=== PATIENT | female | born 1965 | race Caucasian/White ===

== ENCOUNTER → 2017-11-24 17:00 | Outpatient (CLI) | payer OTHER, SELFPAY ==
[2017-10-29 15:23] VITALS: BP 108/62; BMI 29.7
--- NOTE | 2017-11-24 17:15 | HPBI_ITS ---
MAMMOGRAPHY - BILATERAL SCREENING REASON FOR EXAM: Female, 52 years old. Routine annual screening examination. PERTINENT HISTORY: Mother with breast cancer. TECHNIQUE: Digital bilateral breast ajay (3D mammographic acquisition) in the CC and MLO projections. 2-D mediolateral oblique (MLO) and craniocaudad (CC) views of both breasts were obtained. CAD: Full Field Digital Mammography with Computer Added Detection was performed. COMPARISON: Comparison is made with prior study dated August 22, 2016 and June 14, 2015. FINDINGS: Breast Composition: There are scattered areas of fibroglandular density. There are no dominant masses or suspicious calcifications. There is a 6.7 mm x 6.7 mm well-defined nodular density with a central notch in the deep retroareolar region of the right breast. This most likely represents a small lymph node. Correlation with ultrasound is recommended. No other significant abnormalities are identified. There has been no significant change since the prior study. HPBI/SCREENING MAMM (CAD), BILAT IMPRESSION: 6.7 mm x 6.7 mm well-defined nodule in the retroareolar region of the right breast as described. Correlation with ultrasound is recommended. ASSESSMENT CATEGORY: BIRADS Category 0: Incomplete. Need additional imaging evaluation. A letter regarding these results will be sent to the patient by the facility within 30 days. Approximately 10% of breast cancers are not detected by mammography. A normal mammogram should not delay biopsy of a clinically suspicious abnormality. [id number] Electronically Signed: Garcia Montgomery MD at 8:49 EST Tel [phone], Service support ,
== END ==
PROVIDERS: Visit Provider Obstetrics & Gynecology
DX: Z12.31 Encounter for screening mammogram for malignant neoplasm of breast (principal)
CPT/HCPCS: 77063; 77067

== ENCOUNTER → 2017-11-30 15:28 | Outpatient (CLI) | payer OTHER, SELFPAY ==
--- NOTE | 2017-11-30 15:30 | US_ITS ---
STUDY: ULTRASOUND BREAST - RIGHT REASON FOR EXAM: Female, 52 years old. Abnormal screening mammogram. TECHNIQUE: Axial and longitudinal images of the RIGHT breast were performed with a high resolution ultrasound transducer. COMPARISON: Comparison is made with prior mammogram dated November 24, 2017. FINDINGS: RIGHT Breast: There is a 6 mm x 5 mm x 3 mm hypoechoic nodule with central area of increased echotexture suggestive of a small lymph node. US/Breast Limited Unilateral IMPRESSION: Findings suggestive of a small lymph node. This corresponds to the mammographic findings. ASSESSMENT CATEGORY: BIRADS Category 2: Benign. A letter regarding these results will be sent to the patient by the facility within 30 days. Electronically Signed: Garcia Montgomery MD at 16:01 EST Tel [phone], Service support ,
== END ==
PROVIDERS: Visit Provider Obstetrics & Gynecology
DX: N63.0 Unspecified lump in unspecified breast (principal)
CPT/HCPCS: 76642

== ENCOUNTER → 2018-05-06 11:38 | Outpatient (CLI) | payer OTHER, SELFPAY ==
[2018-05-06 12:42] LABS: AST(SGOT) 22 U/L (15-37); Alanine Aminotransfer ALT/SGPT 33 U/L (13-56); Alkaline Phosphatase 56 U/L (45-117); Bilirubin, Direct 0.11 mg/dL (0.00-0.30); Cholesterol 140 mg/dL (200); Globulin 3.2 g/dL (2.2-4.2); High Density Lipoprotein 60 mg/dL; Protein, Total 7.2 g/dL (6.4-8.2); Triglycerides 54 mg/dL; Very Low Density Lipoprotein 11 mg/dL (5-40)
== END ==
PROVIDERS: Visit Provider Nurse Practitioner Family
DX: E78.5 Hyperlipidemia, unspecified (principal)
CPT/HCPCS: 36415; 80061; 80076

== ENCOUNTER → 2018-07-08 13:27 | Outpatient (CLI) | payer OTHER, SELFPAY ==
[2018-07-14 08:54] LABS: HPV Reflexed? NOT INDICATED
== END ==
PROVIDERS: Visit Provider Obstetrics & Gynecology
DX: Z12.4 Encounter for screening for malignant neoplasm of cervix (principal)
CPT/HCPCS: 88175; G0145

== ENCOUNTER → 2019-01-22 10:46 | Outpatient (CLI) | payer OTHER, SELFPAY ==
--- NOTE | 2019-01-22 10:54 | BI_ITS ---
MAMMOGRAPHY - BILATERAL SCREENING REASON FOR EXAM: Female, 53 years old. Routine annual screening examination. PERTINENT HISTORY: Mother with breast cancer. TECHNIQUE: Digital bilateral breast ajay (3D mammographic acquisition) in the CC and MLO projections. 2-D mediolateral oblique (MLO) and craniocaudad (CC) views of both breasts were obtained. CAD: Full Field Digital Mammography with Computer Added Detection was performed. COMPARISON: Comparison is made with prior study dated November 24, 2017 and August 22, 2016. FINDINGS: Breast Composition: There are scattered areas of fibroglandular density. There are no dominant masses or suspicious calcifications. Stable 6.7 mm x 6.7 mm well-defined nodule in the central deep portion of the left breast. No other significant abnormalities are identified. There has been no significant change since the prior study. BI/SCREENING MAMM (CAD), BILAT IMPRESSION: Stable bilateral screening mammogram. Yearly follow-up mammogram recommended. (A) ASSESSMENT CATEGORY: BIRADS Category 2: Benign. A letter regarding these results will be sent to the patient by the facility within 30 days. Approximately 10% of breast cancers are not detected by mammography. A normal mammogram should not delay biopsy of a clinically suspicious abnormality. [id number] Electronically Signed: Garcia Montgomery, at 9:42 EDT , Service support ,
== END ==
PROVIDERS: Referring Provider Obstetrics & Gynecology; Visit Provider Obstetrics & Gynecology
DX: Z12.31 Encounter for screening mammogram for malignant neoplasm of breast (principal)
CPT/HCPCS: 77063; 77067

== ENCOUNTER → 2019-05-20 11:43 | Outpatient (CLI) | payer OTHER, SELFPAY ==
[2019-05-20 12:34] LABS: Absolute Lymphocyte Count 1.77 X10^3/uL (0.83-4.51); Absolute Neutrophil Count 2.4 X10^3/uL (2.0-7.7); Basophil# 0.05 X10^3/uL; Eosinophil# 0.27 X10^3/uL; Eosinophils% 5.4 % (0-5); Hematocrit 38.5 % (37-47); Hemoglobin 12.7 g/dL (12.0-15.0); Lymphocyte # 1.77 X10^3/ul (4.0); Lymphocyte % 35.4 % (19-41); Mean Corpuscular Hgb 31.3 pg (27.0-32.0); Mean Corpuscular Volume 94.8 fL (81-99); Mean Platelet Vol. 10.2 fl (6.2-12.0); Monocyte# 0.52 X10^3/uL; Monocyte% 10.4 % (0-10); NRBC Flagged by Analyzer 0 % (0-5); Neutrophil # 2.38 X10^3/uL (2.7-7.7); Neutrophil % 47.6 % (47-70); Platelet Count 366 K/mm3 (150-450); RBC Distribution Width CV 13.1 % (11.6-14.6); RBC Distribution Width SD 45.8 fl (35.1-43.9); Red Blood Count 4.06 M/mm3 (4.2-5.4)
[2019-05-20 12:42] LABS: Color, Urine Yellow (Yellow); Glucose, Dipstick Normal (Normal); Ketone-Dipstick Negative (Negative); Leukocyte Esterase-Dipstick 100 /ul (Negative); Nitrite-Dipstick Negative (Negative); Occult Blood-Urine Negative /ul (Negative); Protein-Dipstick Negative (Negative); Specific Gravity, Urine 1.015 (1.002-1.030); Urine Bilirubin Dipstick Negative (Negative); Urine Clarity Sl. Cloudy (Clear); Urine Urobilinogen Normal (Normal)
[2019-05-20 13:12] LABS: ALB/GLOB Ratio 1.3 RATIO (0.9-2.4); AST(SGOT) 27 U/L (15-37); Alanine Aminotransfer ALT/SGPT 45 U/L (13-56); Albumin, Serum 4.2 g/dL (3.2-5.0); Alkaline Phosphatase 55 U/L (45-117); Anion Gap 7 (5-15); BUN 23 mg/dL (7-18); BUN/Creat Ratio 22.8 RATIO (10-20); Calcium,Total 9.1 mg/dL (8.5-10.1); Chloride 110 mmol/L (98-107); Cholesterol 142 mg/dL (200); Creatinine, Serum 1.01 mg/dL (0.55-1.02); EST Glomerular Filtration Rate 61 mL/min (>60); Est Glom Filt Rate - Afr Amer 73 mL/min (>60); Globulin 3.3 g/dL (2.2-4.2); Glucose 84 mg/dL (74-106); High Density Lipoprotein 68 mg/dL; Potassium 3.8 mmol/L (3.5-5.1); Protein, Total 7.5 g/dL (6.4-8.2); Sodium Level 142 mmol/L (136-145); Triglycerides 53 mg/dL; Very Low Density Lipoprotein 11 mg/dL (5-40)
== END ==
PROVIDERS: Referring Provider Family Medicine; Visit Provider Family Medicine
DX: Z00.00 Encounter for general adult medical examination without abnormal findings (principal); E78.1 Pure hyperglyceridemia
CPT/HCPCS: 36415; 80053; 80061; 81002; 85025

== ENCOUNTER → 2019-09-08 16:56 | Outpatient (CLI) | payer OTHER, SELFPAY ==
[2018-05-17 10:01] VITALS: BMI 29.7
[2019-09-20 12:45] LABS: HPV APTIMA, High Risk Negative (Negative); HPV Reflexed? YES, CHARGE PATIENT
== END ==
PROVIDERS: Visit Provider Obstetrics & Gynecology
DX: Z12.4 Encounter for screening for malignant neoplasm of cervix (principal)
CPT/HCPCS: 87624; 88175; G0145

== ENCOUNTER → 2019-10-06 13:24 | Outpatient (CLI) | payer OTHER, SELFPAY ==
[2018-05-17 10:01] VITALS: BMI 29.7
--- NOTE | 2019-10-06 | IMM_PTH ---
PATIENT: TAE VILLELA LOC: [facility] U#:[id number] AGE/SX: 59/F ROOM: RE10/06/[address]: Dr. Hari Kathleen MD : 1965 BED: DIS: SPEC #: [id number] RECD: 10/07/19 12:08 STATUS: BIB REAdeola #: [id number] PRISCILLA: 10/06/19 00:[address]: Hari Kathleen DEPT: IMMUNOHISTOCHEMISTRY RECD BY: Soledad Kolb ENTERED: 10/07/19 12:08 SP TYPE: IMMUNO OTHR DR: Damian Milton Tissues: A - Uterine cervix, NOS Procedures: p16 (initial) KI-67 (add) PHYSICIAN & INSTITUTION [facility] [id number] SPECIMEN INFORMATION: Tissue Source: A - Four quadrant of cervix Clinical Info: ASCUS, rule out HGSIL Specimen Number: [id number] CPT code: 60734, 88742 METHODOLOGY: Deparaffinized sections of prefer/formalin-fixed tissue or PAP/DQ stained slides are incubated with monoclonal/polyclonal antibodies/oligonucleotide probes. Localization is made via biotin free immunoperoxidase method. Appropriate controls are performed and reacted as expected. Results on target cell population are indicated in the following table: RESULTS: ANTIBODY / CLONE RESULT Block A P16 (E6H4) positive, focal and patchy Ki-67 (30-9) negative These tests were developed and their performance characteristics determined by [facility]. They may not have been cleared or approved by the U.S. Food and Drug Administration. The FDA has determined that such clearance or approval is not necessary. The above immunohistochemical/dualISH markers are ordered and reviewed by the Pathologist. 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 SJ:nan 10/07/19
--- NOTE | 2019-10-06 | CER_PTH ---
PATIENT: TAE VILLELA LOC: [facility] U#:[id number] AGE/SX: 59/F ROOM: RE10/06/[address]: Dr. Hari Kathleen MD : 1965 BED: DIS: SPEC #: [id number] RECD: 10/06/19 14:07 STATUS: BIB [facility] #: [id number] PRISCILLA: 10/06/19 00:[address]: Hari Kathleen DEPT: SURGICAL PATHOLOGY RECD BY: Jay Coats ENTERED: 10/07/19 09:12 SP TYPE: CERV OTHR DR: Damian Milton Tissues: A - Uterine cervix, NOS B - Endocervical Procedures: Surgery Specimen Level IV HEADER OPERATION: Colposcopy PRE-OP DIAGNOSIS: ASCUS, cannot rule out HGSIL TISSUE SUBMITTED: A - Four quadrant of cervix, B - ECC MICROSCOPIC DIAGNOSIS A. 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 Mild chronic inflammation. See comment. B. ECC: Scant fragments of benign endocervical epithelium, blood and mucous, negative for dysplasia. JUDIE:nan 10/07/19 COMMENT A. Immunohistochemistry ([id number]) for surrogate HPV marker (p16) supports the above diagnosis. MICROSCOPIC DESCRIPTION Slides are reviewed. GROSS DESCRIPTION A - Received in fixative is one container labeled with the patient's name and designated four quadrant. The specimen consists of multiple irregular fragments of light mohan soft tissue that in aggregate measure 1 x 1 x 0.2 cm. The specimen is totally submitted in one cassette. B - Received in fixative is one container labeled with the patient's name and designated ECC. The specimen consists of multiple fragments of hemorrhagic soft tissue that in aggregate measure 1.5 x 0.5 x 0.1 cm. The specimen is totally submitted in one cassette. / JUDIE:nan 10/06/19 TC:5 CPT: 04902 x2
== END ==
PROVIDERS: Referring Provider Obstetrics & Gynecology; Visit Provider Obstetrics & Gynecology
DX: R87.610 Atypical squamous cells of undetermined significance on cytologic smear of cervix (ASC-US) (principal)
CPT/HCPCS: 88305; 88341; 88342

== ENCOUNTER 2019-11-07 08:43 | Day surgery (SDC) | payer OTHER, SELFPAY ==
[2019-11-02 16:59] LABS: Hematocrit 37.1 % (37-47); Hemoglobin 11.9 g/dL (12.0-15.0); Mean Corp Hgb Conc 32.1 g/dL (32-36); Mean Corpuscular Hgb 30.2 pg (27.0-32.0); Mean Corpuscular Volume 94.2 fL (81-99); Mean Platelet Vol. 10.2 fl (6.2-12.0); Platelet Count 352 K/mm3 (150-450); RBC Distribution Width CV 12.9 % (11.6-14.6); RBC Distribution Width SD 44.6 fl (35.1-43.9); Red Blood Count 3.94 M/mm3 (4.2-5.4); White Blood Count 5.7 K/mm3 (4.4-11.0)
[2019-11-02 17:06] LABS: International Normalized Ratio 1.1; Prothrombin Time (Protime)PT. 13.5 SECONDS (11.7-14.9)
[2019-11-02 17:07] LABS: Partial Thromboplast Time 33.9 Seconds (24.1-36.2)
--- NOTE | 2019-11-05 13:59 | PCM.HP.BLA ---
History and Physical Date of Admission: 11/07/19 Surgical History and Physical Dayami Hackett, a 54 year old female 3 0 0 0 3, presents for LEEP on October at 12:30. -- ASCUS PAP cannot R/O HSIL; colposcopy discordant --Recent pap screening with ASCUS cannot r/o HGSIL. 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 Mild chronic inflammation ECC: Scant fragments of benign endocervical epithelium, blood and mucous, negative for dysplasia. MEDICATIONS HISTORY: Current medications prescribed by our practice are: 1. Detrol LA 2 mg capsule,extended release, One pill by mouth once a day Patient is also takin. Calcium 500 + D 500 mg(1,250mg) -400 unit tablet, One pill by mouth twice a day 2. fenofibrate micronized 130 mg capsule, One pill by mouth once a day 3. Multiple Vitamin, Womens tablet, 1 PO QD 4. Unisom (doxylamine) 25 mg tablet ALLERGIES: Sulfonamides, Rash, Doxycycline, Stomach upset, Augmentin, Diarrhea and vomiting, Augmentin, Vomiting, Doxycycline, Stomach ache, Sulfa (Sulfonamide Antibiotics) and Hives and/or rash Infections - Chicken pox Illnesses - seasonal allergies Accidents - no injuries of consequence Hospitalizations - Childbirth and see surgery Review of Systems: GENERAL - Denies fever, or chills SKIN - Denies skin changes EYES - Denies visual changes EARS - Denies difficulty hearing NOSE - Denies nasal congestion or bleeding MOUTH - Denies sore throat or difficulty swallowing NECK - Denies pain or swelling RESPIRATORY - Denies shortness of breath or wheezing CARDIOVASCULAR - Denies palpitations or chest pain GASTROINTESTINAL - Denies nausea, vomiting, diarrhea, constipation GENITOURINARY - Denies dysuria, frequency of urination, incontinence of urine MUSCULOSKELETAL - Denies joint or muscle pain NEUROLOGICAL - Denies localized numbness or weakness PSYCHIATRIC - Denies depression or anxiety ENDOCRINE - Denies heat or cold intolerance, weight loss or gain HEMATO-IMMUNOLOGIC - Denies excesive bleeding with cuts SOCIAL HISTORY: Alcohol Use - socially Smoking - denies use Diet - no special diet Lifestyle - moderate stress lifestyle and Exercise - regular Seat Belt Use - always [employer]er - [employer] 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 Father: Prostate Cancer. MENSTRUAL HISTORY: LMP Known?- DefiniteAmount/Duration - 4 days, Regularity - Irregular, Frequency - variable days, LMP - 10/02/17, Age Onset Menarche - 12 PAST PREGNANCIES: Total Pregnancies - 3; Full Term Pregnancies - 3; Premature - 0; Abortions, Induced - 0; Abortions, Spontaneous - 0; Ectopics - 0; Multiple Births - 0; Living Children - 3 SURGICAL HISTORY: 1. , 1989 2. removal of vocal nodules 1994 PHYSICAL EXAM BP- 110/76 Sitting, Right arm, regular cuff Weight- 171.25357 lbs Height- 63.5 inch BMI:29.88 CONSTITUTIONAL - NAD, well nourished, and well developed SKIN - No rash, lesions, or ulcers HEENT - Normocephalic, PERRLA, EOMI NECK - No nodes, no nuchal rigidity and thyroid normal size and texture LYMPH NODES - Palpation of lymph nodes in neck and groins within normal limits LUNGS - CTA x2 without wheezes, crackles or rales CARDIAC - Regular rate and rhythm without rubs, murmurs, or gallops BREAST - No dominant masses, no tenderness, no axillary adenopathy, no nipple discharge, no skin changes ABDOMEN - Without hepatosplenomegaly, distention, masses, rebound, or guarding; normal bowel sounds; no hernias EXTREMITIES - No edema or calf tenderness NEUROLOGICAL - Cranial nerves II-XII grossly intact PSYCHIATRIC - A and O to time, place, person, mood and affect External Genitial Vagina - non-tender without lesions Urethra/Urethral Meatus - non-tender Bladder - non-tender Vagina - vaginal garcia are pink and moist without loss of rugae and no evidence of atropy Cervix - without cervical motion tenderness and has normal size and features without evident lesions Uterus - 5-6 cm in size, mobile and nontender Adnexa - clear without massess or tenderness ASSESSMENT/PLAN: PAP with ASCUS cannot r/o HSIL. Discordant with colposcopy. Plan LEEP. Discussed RBAs and all questions answsered.
[2019-11-07] VITALS (7 sets, daily range): BP systolic 100–120; BP diastolic 58–85; PULSE 74–95; RESP 16; TEMP 36.2–36.7; O2SAT 95–100; BMI 30.2
--- NOTE | 2019-11-07 | CER_PTH ---
PATIENT: TAE VILLELA LOC: [facility] [place] U#:[id number] AGE/SX: 54/F ROOM: RE11/07/[address]: Dr. Hari Kathleen MD : 1965 BED: DIS: 11/07/2019 SPEC #: [id number] RECD: 11/07/19 13:28 STATUS: BIB [place] #: [id number] PRISCILLA: 11/07/19 00:[address]: Hari Kathleen DEPT: SURGICAL PATHOLOGY RECD BY: Jay Coats ENTERED: 11/07/19 13:28 SP TYPE: CERV OTHR DR: MD Damian Rizo Tissues: A - Uterine cervix, NOS B - Uterine cervix, NOS C - Endocervical Procedures: Surgery Specimen Level IV Surgery Specimen Level V HEADER OPERATION: LEEP cone PRE-OP DIAGNOSIS: Abnormal pap smear TISSUE SUBMITTED: A - LEEP biopsy - ectocervix, B - LEEP biopsy - endocervix, C - Endocervical curettings after LEEP MICROSCOPIC DIAGNOSIS A. Ectocervix, LEEP: Chronic inflammation and old hemorrhage. Negative for dysplasia. See comment. B. Endocervix, LEEP: Chronic inflammation. Negative for dysplasia. See comment. C. Endocervical curettings: Scant fragments of benign endocervical epithelium, blood and mucous, negative for dysplasia. SJ:nan 11/08/19 COMMENT A & B. Most of the specimen shows denuded epithelium. Please make reference to previous specimen ([id number]) cervix, four quadrant biopsy with diagnosis of focal minimal changes consistent with HPV cytopathic effects. MICROSCOPIC DESCRIPTION Slides are reviewed. GROSS DESCRIPTION A - Received in fixative is one container labeled with the patient's name and designated LEEP biopsy ectocervix. The specimen consists of three irregular fragments of pink-mohan soft tissue ranging in size from 1.5 to 1.8 cm. No orientation is provided. The fragments are inked, serially sectioned and submitted entirely in four cassettes. B - Received in fixative is one container labeled with the patient's name and designated LEEP biopsy endocervix. The specimen consists of two irregular fragments of pink-mohan soft tissue ranging in size from 0.5 to 1 cm. The specimen is totally submitted in two cassettes as follows: 1 - smaller fragment with adherent mucosa, 2 - larger fragment, inked and serially sectioned. C - Received in fixative is one container labeled with the patient's name and designated endocervical curettings. The specimen consists of reddish-mohan mucoid material aggregating to 0.5 x 0.2 x <0.1 cm. The specimen is submitted in its entirety in one cassettes. / AM:nan 11/07/19 TC:5 CPT: 67634 x2, 24590
[2019-11-07] MEDS: Lactated Ringers 1,000 ML 100 ML IV (09:25)
--- NOTE | 2019-11-07 10:37 | PCM.OPRPT ---
Report of Operation Date of Procedure: 11/07/19 Pre-Operative Diagnosis: Abnormal Pap Smear, Possible Severe Dysplasia Post-Operative Diagnosis: Abnormal Pap Smear, Possible Severe Dysplasia Surgery/Procedure Performed:: LEEP Conization of the Cervix Description of Surgical Findings:: Normal-appearing cervix. Type of Anesthesia:: MAC Anesthesiologist: Abdoulaye Tripathi Estimated Blood Loss (mL): Minimal Fluids Replaced: Crystalloid Description of Procedure: Surgeon: Hari Kathleen MD, FACOG Indication: 54 year old patient who was recently noted to have atypical squamous cells of undetermined significance cannot rule out high-grade dysplasia at time of Pap smear; cervical biopsy was benign. She has been counseled regarding the risk, indications, and alternatives of this procedure and desire that we proceed. All questions answered. Procedure: Patient taken to the operating room where she was given IV sedation and placed in the dorsal lithotomy position and prepped and draped in the usual sterile fashion. Cervix was visualized and painted with Lugol's solution. The ectocervix was then removed to a depth of 5 mm on a setting of 50 W cutting and endocervix removed to a depth of 7 mm on a setting of 50 W cutting. Endocervical curettings were obtained. Base of the cone was then cauterized a setting of 50 W coagulation. It was necessary to place three 0 Vicryl ditches into the cervix to help with hemostasis of the cervix. Monsel's was painted across the LEEP base. Pt tolerated the procedure well and was taken to the recovery room in satisfactory condition. Sponge, instruments and needle counts were all correct. There were no apparent complications of the surgery. To Pathology: Ectocervix, endocervix, ECC after LEEP EBL Minimal. Grafts/Implants Used: None - Complications None - Admit VTE Documentation VTE Present on Admission: Yes VTE Mechan Device Prophylaxis: SCD's
--- NOTE | 2019-11-07 10:41 | DCINST_ITS ---
Discharge Diet: No Restrictions Discharge Activity: Return to Normal Activity, May not drive while taking narcotic pain medications., May Shower, May Take a Tub Bath May resume sexual activity in: 4 weeks - nothing in the vagina for 4 weeks. Call your doctor if you observe: Fever of 101 or Higher, Inability to urinate, Inability to have a bowel movement, Using more than one pad per hour Allergies/Adverse Reactions: Allergies Sulfa (Sulfonamide Antibiotics) Allergy (Verified 11/07/19 09:12) Rash amoxicillin [From Augmentin] Adverse Reaction (Verified 11/07/19 09:12) Upset Stomach clavulanic acid [From Augmentin] Adverse Reaction (Verified 11/07/19 09:12) Upset Stomach doxycycline Adverse Reaction (Verified 11/07/19 09:12) Upset Stomach Medications to take at Discharge Fenofibrate [Tricor] 135 mg PO DAILY 01/28/17 Multivitamins,Therapeutic [Multivitamin] 1 tab PO DAILY 01/28/17 alprazolam 0.25 mg tablet 0.25 mg PO BID-TID PRN 10/29/17 tolterodine 2 mg capsule,extended release 24 hr 2 mg PO QDAY 05/17/18 Omeprazole [Prilosec] 20 mg PO DAILY 10/31/19 Primary Care Physician: Anastacia Arellano [Primary Care Provider] - Test Results: Test results from this visit will be discussed in further detail at your follow- up appointment, if applicable. Please Follow Up With: Hari Kathleen MD When: 4 to 6 weeks
[2019-11-07] MEDS: Lubricating Jelly 60 GM Tube 30 GM TOPICAL (11:06)
[2019-11-07] MEDS: Iodine/Potassium Iodide 14ML Bottle 1 DRP TOPICAL (11:07)
[2019-11-07] MEDS: FERRIC SUBSULFATE 8 GM SOLN (11:19)
== END 2019-11-07 12:36 | disposition home or self-care (01) ==
LOC: SDC 08:43 → AC 08:45
PROVIDERS: PCP Internal Medicine; Referring Provider Obstetrics & Gynecology; Visit Provider Obstetrics & Gynecology
PROC: 0UBC7ZZ Excision of Cervix, Via Natural or Artificial Opening (ICD-10-PCS; CPT 57522; principal; 2019-11-07 10:20)
DX: N72 Inflammatory disease of cervix uteri (principal); R87.610 Atypical squamous cells of undetermined significance on cytologic smear of cervix (ASC-US); Z82.49 Family history of ischemic heart disease and other diseases of the circulatory system; Z88.0 Allergy status to penicillin; Z88.1 Allergy status to other antibiotic agents; Z88.2 Allergy status to sulfonamides
CPT/HCPCS: 57522; 85027; 85610; 85730; 86850; 86900; 86901; 88305; 88307; J7120

== ENCOUNTER → 2020-03-02 11:30 | Outpatient (CLI) | payer OTHER, SELFPAY ==
[2019-11-07 09:13] VITALS: BMI 30.2
--- NOTE | 2020-03-02 11:32 | BI_ITS ---
MAMMOGRAPHY - BILATERAL SCREENING REASON FOR EXAM: Female, 54 years old. Routine annual screening examination. PERTINENT HISTORY: Mother with breast cancer. TECHNIQUE: Digital bilateral breast ernst (3D mammographic acquisition) in the CC and MLO projections. 2-D mediolateral oblique (MLO) and craniocaudad (CC) views of both breasts were obtained. CAD: Full Field Digital Mammography with Computer Added Detection was performed. COMPARISON: Comparison is made with prior examination dated January 22, 2019 and November 24, 2017. FINDINGS: Breast Composition: There are scattered areas of fibroglandular density. There are no dominant masses or suspicious calcifications. Stable 6 mm x 6.5 mm well-defined nodule in the central deep portion of the left breast. This most likely represents a small lymph node. Correlation with ultrasound is recommended. No other significant abnormalities are identified. There has been no significant change since the prior study. BI/SCREEN MAMM (CAD) W/ERNST BILAT IMPRESSION: Stable bilateral screening mammogram. Correlation with ultrasound of the left breast is recommended for further evaluation. ASSESSMENT CATEGORY: BIRADS Category 0: Incomplete. Need additional imaging evaluation. A letter regarding these results will be sent to the patient by the facility within 30 days. Approximately 10% of breast cancers are not detected by mammography. A normal mammogram should not delay biopsy of a clinically suspicious abnormality. [id number] Electronically Signed: Garcia Montgomery, at 12:25 EDT , Service support ,
== END ==
PROVIDERS: PCP Internal Medicine; Referring Provider Obstetrics & Gynecology; Visit Provider Obstetrics & Gynecology
DX: Z12.31 Encounter for screening mammogram for malignant neoplasm of breast (principal)
CPT/HCPCS: 77063; 77067

== ENCOUNTER → 2020-03-06 12:32 | Outpatient (CLI) | payer OTHER, SELFPAY ==
[2019-11-07 09:13] VITALS: BMI 30.2
--- NOTE | 2020-03-06 12:33 | US_ITS ---
STUDY: ULTRASOUND BREAST - LEFT REASON FOR EXAM: Female, 54 years old. ABN LEFT MAMM TECHNIQUE: Axial and longitudinal images of the LEFT breast were performed with a high resolution ultrasound transducer. # OF IMAGES: 36 COMPARISON: None. FINDINGS: LEFT Breast: There is an oval-shaped lesion #1 in the retroareolar area. The lesion measures 0.6 x 0.6 x 0.4 cm in size. Clock notation: Posterior Enhancement: No. Posterior Shadowing: None. Margins: Sharp and smooth. Echogenicity: Isoechoic. Compression effect on Shape: No change. There is a gently lobulated lesion #2 in the retroareolar area. The lesion measures 0.7 x 0.6 x 0.4 cm in size. Posterior Enhancement: Yes. Posterior Shadowing: None. Margins: Sharp and smooth. Echogenicity: Anechoic. Compression effect on Shape: No change. There is a rounded lesion #3 in the retroareolar area. The lesion measures 0.4 x0.4 x 0.4 cm in size. Posterior Enhancement: Yes. Posterior Shadowing: None. Margins: Sharp and smooth. Echogenicity: Anechoic. Compression effect on Shape: No change. US/Breast Limited Unilateral IMPRESSION: 3 benign-appearing retroareolar lesions. Lesion #1 is Consistent with lymph node. Lesions #2 and #3 most likely represent cysts. ASSESSMENT CATEGORY: BIRADS Category 2: Benign. A letter regarding these results will be sent to the patient by the facility within 30 days. Electronically Signed: Jerzy Ojeda, at 11:10 EDT Tel , Service support ,
== END ==
PROVIDERS: PCP Internal Medicine; Referring Provider Obstetrics & Gynecology; Visit Provider Obstetrics & Gynecology
DX: R92.8 Other abnormal and inconclusive findings on diagnostic imaging of breast (principal)
CPT/HCPCS: 76642

== ENCOUNTER → 2020-11-07 15:58 | Outpatient (CLI) | payer OTHER, SELFPAY ==
[2019-11-07 09:13] VITALS: BMI 30.2
[2020-11-13 09:24] LABS: HPV APTIMA, High Risk Positive (Negative)
[2020-11-13 09:25] LABS: HPV Reflexed? YES, CHARGE PATIENT
== END ==
PROVIDERS: PCP Internal Medicine; Visit Provider Obstetrics & Gynecology
DX: Z12.4 Encounter for screening for malignant neoplasm of cervix (principal)
CPT/HCPCS: 87624; 88175; G0145

== ENCOUNTER → 2021-03-07 17:20 | Outpatient (CLI) | payer OTHER, SELFPAY ==
[2019-11-07 09:13] VITALS: BMI 30.2
--- NOTE | 2021-03-07 17:02 | BI_ITS ---
MAMMOGRAPHY - BILATERAL SCREENING 3-D TOMOSYNTHESIS REASON FOR EXAM: Female, 55 years old. Routine screening PERTINENT HISTORY: Mother with breast cancer.. TECHNIQUE: 2-D mammograms and 3-D Tomosynthesis of the breast (s) were performed. CAD was performed. COMPARISON: 02/21/2020 FINDINGS: The breast composition is composed of scattered fibroglandular density. Scattered benign calcifications are seen. No dense spiculated masses or suspicious microcalcifications are identified. No architectural distortion is identified. There is no skin thickening or retraction. There has been no significant change since the prior study. BI/SCRN MAMM (CAD)W/ERNST BILAT IMPRESSION: No mammographic signs of malignancy. Routine yearly mammograms recommended. ASSESSMENT CATEGORY: BIRADS Category 2: Benign. A letter regarding these results will be sent to the patient by the facility within 30 days. FOLLOW UP RECOMMENDATION: Yearly follow up mammogram recommended. (A) Approximately 10% of breast cancers are not detected by mammography. A normal mammogram should not delay biopsy of a clinically suspicious abnormality. Electronically Signed: All Wolfe MD at 7:48 EDT , Service support ,
== END ==
PROVIDERS: PCP Internal Medicine; Referring Provider Obstetrics & Gynecology; Visit Provider Obstetrics & Gynecology
DX: Z12.31 Encounter for screening mammogram for malignant neoplasm of breast (principal)
CPT/HCPCS: 77063; 77067

== ENCOUNTER 2021-11-27 15:37 | Outpatient (CLI) | payer OTHER, SELFPAY ==
[2021-12-02 10:46] LABS: HPV APTIMA, High Risk Negative (Negative); HPV Reflexed? YES, CHARGE PATIENT
== END 2021-11-27 23:59 | disposition home or self-care (01) ==
LOC: LABSPEC 15:38
PROVIDERS: PCP Internal Medicine; Visit Provider Obstetrics & Gynecology
DX: Z12.4 Encounter for screening for malignant neoplasm of cervix (principal)
CPT/HCPCS: 87624; 88175; G0145

== ENCOUNTER → 2022-04-08 | Outpatient (CLI) | payer OTHER, SELFPAY ==
--- NOTE | 2022-04-08 10:59 | BI_ITS ---
MAMMOGRAPHY - BILATERAL SCREENING REASON FOR EXAM: Female, 56 years old. Routine annual screening examination. PERTINENT HISTORY: Mother with breast cancer. TECHNIQUE: Digital bilateral breast ernst (3D mammographic acquisition) in the CC and MLO projections. 2-D mediolateral oblique (MLO) and craniocaudad (CC) views of both breasts were obtained. CAD: Full Field Digital Mammography with Computer Added Detection was performed. COMPARISON: Screening mammogram from 03/07/2021, 03/02/2020, 01/22/2019, 11/24/2018. Diagnostic left breast ultrasound from 03/06/2020. FINDINGS: Breast Composition: There are scattered areas of fibroglandular density. There are no dominant masses or suspicious calcifications. Stable left retroareolar lymph nodes and mass previously characterized as a cyst. No other significant abnormalities are identified. There has been no significant change since the prior study. BI/SCRN MAMM (CAD)W/ERNST BILAT IMPRESSION: Stable bilateral screening mammogram. Yearly follow-up mammogram recommended. (A) ASSESSMENT CATEGORY: BIRADS Category 2: Benign. A letter regarding these results will be sent to the patient by the facility within 30 days. Approximately 10% of breast cancers are not detected by mammography. A normal mammogram should not delay biopsy of a clinically suspicious abnormality. [id number] Electronically Signed: Amandeep Lamb, at 16:09 EDT ,
== END | disposition home or self-care (01) ==
LOC: OPBI 10:58
PROVIDERS: PCP Internal Medicine; Visit Provider Obstetrics & Gynecology
DX: Z12.31 Encounter for screening mammogram for malignant neoplasm of breast (principal); Z80.3 Family history of malignant neoplasm of breast
CPT/HCPCS: 77063; 77067

== ENCOUNTER → 2023-04-15 | Outpatient (CLI) | payer OTHER, SELFPAY ==
--- NOTE | 2023-04-15 15:41 | BI_ITS ---
MAMMOGRAPHY - BILATERAL SCREENING REASON FOR EXAM: Female, 57 years old. Routine annual screening examination. PERTINENT HISTORY: Mother with breast cancer. TECHNIQUE: Digital bilateral breast ernst (3D mammographic acquisition) in the CC and MLO projections. 2-D mediolateral oblique (MLO) and craniocaudad (CC) views of both breasts were obtained. CAD: Full Field Digital Mammography with Computer Added Detection was performed. COMPARISON: Comparison is made with prior study dated April 08, 2022 and March 07, 2021. FINDINGS: Breast Composition: There are scattered areas of fibroglandular density. There are no dominant masses or suspicious calcifications. Stable 3.6 mm x 7.2 mm nodule in the central aspect of the left breast suggestive of a small cyst. No other significant abnormalities are identified. There has been no significant change since the prior study. BI/SCRN MAMM (CAD)W/ERNST BILAT IMPRESSION: Stable bilateral screening mammogram. Yearly follow-up mammogram recommended. (A) ASSESSMENT CATEGORY: BIRADS Category 2: Benign. A letter regarding these results will be sent to the patient by the facility within 30 days. Approximately 10% of breast cancers are not detected by mammography. A normal mammogram should not delay biopsy of a clinically suspicious abnormality. [id number] Electronically Signed: Garcia Montgomery MD at 8:32 EDT ,
== END | disposition home or self-care (01) ==
LOC: OPBI 15:40
PROVIDERS: PCP Internal Medicine
DX: Z12.31 Encounter for screening mammogram for malignant neoplasm of breast (principal); Z80.3 Family history of malignant neoplasm of breast
CPT/HCPCS: 77063; 77067

== ENCOUNTER → 2024-04-25 | Outpatient (CLI) | payer OTHER, SELFPAY ==
--- NOTE | 2024-04-25 10:46 | BI_ITS ---
MAMMOGRAPHY - BILATERAL SCREENING REASON FOR EXAM: Female, 58 years old. Routine annual screening examination. PERTINENT HISTORY: Non-contributory. TECHNIQUE: Digital bilateral breast ernst (3D mammographic acquisition) in the CC and MLO projections. 2-D mediolateral oblique (MLO) and craniocaudad (CC) views of both breasts were obtained. CAD: Full Field Digital Mammography with Computer Added Detection was performed. COMPARISON: Comparison is made with prior study dated April 15, 2023 and April 08, 2022. FINDINGS: Breast Composition: There are scattered areas of fibroglandular density. Since prior study, there has been increase in size of the nodule in the central aspect of the left breast. Correlation with ultrasound is recommended for further evaluation. No other significant abnormalities are identified. BI/SCRN MAMM (CAD)W/ERNST BILAT IMPRESSION: Increased size of the nodular density in the central portion of the left breast. Correlation with ultrasound recommended. ASSESSMENT CATEGORY: BIRADS Category 0: Incomplete. Need additional imaging evaluation. A letter regarding these results will be sent to the patient by the facility within 30 days. Approximately 10% of breast cancers are not detected by mammography. A normal mammogram should not delay biopsy of a clinically suspicious abnormality. [id number] Electronically Signed: Garcia Montgomery MD at 11:23 EDT ,
== END | disposition home or self-care (01) ==
LOC: OPBI 10:44
PROVIDERS: PCP Internal Medicine; Referring Provider Internal Medicine; Visit Provider Internal Medicine
DX: Z12.31 Encounter for screening mammogram for malignant neoplasm of breast (principal)
CPT/HCPCS: 77063; 77067

== ENCOUNTER → 2024-04-26 | Outpatient (CLI) | payer OTHER, SELFPAY ==
--- NOTE | 2024-04-26 10:36 | US_ITS ---
STUDY: ULTRASOUND BREAST - LEFT REASON FOR EXAM: Female, 58 years old. Abnormal screening mammogram. TECHNIQUE: Axial and longitudinal images of the LEFT breast were performed with a high resolution ultrasound transducer. # OF IMAGES: 8 COMPARISON: Comparison is made with prior mammogram dated April 25, 2024 and prior sonogram of the left breast dated March 06, 2020. FINDINGS: LEFT Breast: The mammographic abnormality corresponds to a 7 mm x 9 mm x 6 mm cyst in the retroareolar region of the breast. US/Breast Limited Unilateral IMPRESSION: 7 mm x 9 mm x 6 mm cyst in the retroareolar region of the breast. This corresponds to the mammographic findings. ASSESSMENT CATEGORY: BIRADS Category 2: Benign. A letter regarding these results will be sent to the patient by the facility within 30 days. Electronically Signed: Garcia Montgomery MD at 9:29 EDT ,
== END | disposition home or self-care (01) ==
PROVIDERS: PCP Internal Medicine; Referring Provider Internal Medicine; Visit Provider Internal Medicine
DX: R92.8 Other abnormal and inconclusive findings on diagnostic imaging of breast (principal)
CPT/HCPCS: 76642

== ENCOUNTER → 2025-04-26 | Outpatient (CLI) | payer OTHER, SELFPAY ==
--- NOTE | 2025-04-26 14:41 | BI_ITS ---
EXAM: SCRN MAMM (CAD)W/ERNST BILAT DATE: 04/26/2025 CLINICAL HISTORY: F, Age 59 y/o , SCREENING TECHNIQUE: SCRN MAMM (CAD)W/ERNST BILAT COMPARISON: Prior exam(s) dated 04/25/2024, 04/07/2023, 04/08/2022. FINDINGS: TISSUE DENSITY: There are scattered areas of fibroglandular density. Bilateral Breast Mammographic Findings: No significant masses, calcifications or other abnormalities are identified. BI/SCRN MAMM (CAD)W/ERNST BILAT IMPRESSION: There is no mammographic evidence of malignancy. OVERALL FINAL ASSESSMENT BI-RADS 1: NEGATIVE. RECOMMEND ANNUAL MAMMOGRAPHIC SCREENING. RECOMMENDATION: Routine annual follow-up in 1 Year A letter with findings and recommendations will be mailed to the patient. Reading Location: [id number]
== END | disposition home or self-care (01) ==
LOC: OPBI 14:40
PROVIDERS: PCP Internal Medicine; Referring Provider Internal Medicine; Visit Provider Internal Medicine
DX: Z12.31 Encounter for screening mammogram for malignant neoplasm of breast (principal)
CPT/HCPCS: 77063; 77067